=== PATIENT | female | born 1970 | race Caucasian/White ===

== ENCOUNTER 2018-01-15 10:27 | Day surgery (SDC) | END 2018-01-15 16:40 | disposition home or self-care (01) ==

== ENCOUNTER 2018-01-29 06:33 | Day surgery (SDC) | END 2018-01-31 19:04 | disposition home or self-care (01) ==

== ENCOUNTER 2018-02-27 13:08 | Inpatient (IN) | END 2018-03-04 20:38 | disposition home health service (06) | DRG 863 ==

== ENCOUNTER 2018-04-05 02:20 | Inpatient (IN) | END 2018-04-08 18:52 | disposition home or self-care (01) | DRG 872 ==